=== PATIENT | female | born 1935 | race African-American/Black ===

== ENCOUNTER 2021-10-17 17:32 | Inpatient (IN) ==
[2021-10-17] MEDS ORDERED: SODIUM CHLORIDE 0.9% 1,000 ML IV STA (18:30)
[2021-10-17 18:57] LABS: Lactic Acid 1.8 MMOL/L (0.4-2.0)
[2021-10-17 19:00] LABS: Basophils % 0.2 % (0.0-0.8); Hematocrit 37.6 VOL% (35.7-47.0); Hemoglobin 12.9 GM/DL (12.0-16.0); Immature Granulocytes % 0.5 %; Immature Granulocytes Absolute 0.04 #; Lymphocytes # 0.7 10*3/uL (1.4-4.0); Lymphocytes % 8.2 % (21.3-54.2); Mean Corpuscular HGB Conc 34.3 GM/DL (32-36); Mean Corpuscular Volume 82.3 FL (87-102); Monocytes # 0.2 10*3/uL (0.11-0.8); Monocytes % 2.7 % (1.7-12.7); Neutrophils % 88.4 % (38.7-73.9); Platelet Count 243 T/CUMM (130-400); Red Blood Count 4.57 MC/CUMM (3.8-5.5); Red Cell Distribution Width 13.7 % (9.3-17.3); White Blood Count 8.9 T/CUMM (4-12)
[2021-10-17 19:09] LABS: Alanine Aminotransferase 19 U/L (13-56); Albumin 3.8 G/DL (3.4-5.0); Alkaline Phosphatase 154 U/L (45-117); Aspartate Amino Transferase 18 U/L (0-37); Blood Urea Nitrogen 16 MG/DL (7-18); Calcium 9.3 MG/DL (8.5-10.1); Carbon Dioxide 24 MMOL/L (21-32); Chloride 107 MMOL/L (98-107); Estimated Glom Filtration Rate 64 ML/MIN; Glucose 123 MG/DL (74-106); Osmolality,Calculated 276.7 MOS/KG (273-304); Potassium 3.7 MMOL/L (3.5-5.1); Sodium 138 MMOL/L (136-145); Total Protein 8.2 G/DL (6.4-8.2)
[2021-10-17 19:24] LABS: Mucus,Urine Occasional /LPF (Occasional); Squamous Epithelial Cell,Urine Occasional /HPF (0-10)
[2021-10-17 19:25] LABS: Bilirubin,Urine Negative (Negative); Blood, Urine Moderate mg/dL (Negative); Glucose,Urine (UA) Negative (Negative); Ketones,Urine Negative (Negative); Nitrite,Urine Negative (Negative); Protein,Urine >=300 mg/dL (Negative); Urine Appearance Clear (Clear); Urine Color Yellow (Yellow); Urine Specific Gravity 1.025 (1.001-1.035); Urine Urobilinogen 0.2 eU/dL (<2.0); Urine pH 6.5 (4.5-8.0)
[2021-10-17 19:33] LABS: Barbiturates Screen,Urine Negative (Negative); Benzodiazepines Screen,Urine Negative (Negative); Cannabinoid Screen,Urine Negative (Negative); Opiate Screen,Urine Negative (Negative); Phencyclidine Screen,Urine Negative (Negative)
[2021-10-17] MEDS ORDERED: hydrALAZINE 20 MG/1 ML VIAL IV STA (19:36)
[2021-10-17] MEDS ORDERED: amLODIPine 5 MG TABLET PO STA (20:19)
[2021-10-17] MEDS ORDERED: GLUCAGON 1 MG VIAL IM PRN (21:02)
[2021-10-17] MEDS ORDERED: ASPIRIN 325 MG TABLET PO STA (21:02)
[2021-10-17] MEDS ORDERED: hydrALAZINE 20 MG/1 ML VIAL IV PRN (21:02)
[2021-10-17] MEDS ORDERED: DEXTROSE 10% 250 ML BAG IV PRN (21:02)
[2021-10-17] MEDS: SODIUM CHLORIDE 0.9% 1,000 ML IV SCH (22:02)
[2021-10-18 05:57] LABS: Basophils # 0.1 10*3/uL (0.0-0.2); Basophils % 0.5 % (0.0-0.8); Eosinophils % 0.3 % (0.00-10.9); Hematocrit 34.1 VOL% (35.7-47.0); Hemoglobin 11.5 GM/DL (12.0-16.0); Immature Granulocytes % 0.3 %; Immature Granulocytes Absolute 0.03 #; Lymphocytes # 2.1 10*3/uL (1.4-4.0); Lymphocytes % 19.5 % (21.3-54.2); Mean Corpuscular HGB Conc 33.7 GM/DL (32-36); Mean Platelet Volume 10.7 FL (9.6-12.0); Monocytes # 0.7 10*3/uL (0.11-0.8); Monocytes % 6.2 % (1.7-12.7); Neutrophils % 73.2 % (38.7-73.9); Platelet Count 212 T/CUMM (130-400); Red Blood Count 4.11 MC/CUMM (3.8-5.5); Red Cell Distribution Width 13.7 % (9.3-17.3); White Blood Count 10.7 T/CUMM (4-12)
[2021-10-18 06:29] LABS: Calcium 8.7 MG/DL (8.5-10.1); Osmolality,Calculated 286.8 MOS/KG (273-304); Potassium 3.4 MMOL/L (3.5-5.1); Risk Ratio 3.06; Thyroid Stimulating Hormone 2.17 uIU/ml (0.358-3.74); VLDL Cholesterol 9.8 MG/DL
[2021-10-18] MEDS: ATORVASTATIN 40 MG TABLET PO SCH (13:46)
[2021-10-18] MEDS: ASPIRIN 325 MG TABLET PO SCH (13:46)
[2021-10-18] MEDS: ENOXAPARIN 40 MG/0.4 ML SYRINGE SUBCUT SCH (13:46)
[2021-10-18] MEDS: PANTOPRAZOLE 40 MG TABLET PO SCH (13:46)
[2021-10-18] MEDS ORDERED: LORazepam 2 MG/1 ML VIAL IM ONE (16:30)
[2021-10-18] MEDS ORDERED: HALOPERIDOL 5 MG/ML AMP IM ONE (16:30)
[2021-10-18] MEDS ORDERED: QUEtiapine 25 MG TABLET PO SCH (17:00)
[2021-10-18] MEDS: SODIUM CHLORIDE 0.9% 1,000 ML IV SCH (17:08)
[2021-10-19] MEDS ORDERED: LORazepam 2 MG/1 ML VIAL IV ONE (08:00)
[2021-10-19] MEDS: SODIUM CHLORIDE 0.9% 1,000 ML IV SCH ×2 (08:23→14:32)
[2021-10-19] MEDS: ENOXAPARIN 40 MG/0.4 ML SYRINGE SUBCUT SCH (09:29)
[2021-10-19] MEDS: ASPIRIN 325 MG TABLET PO SCH (09:39)
[2021-10-19] MEDS: ATORVASTATIN 40 MG TABLET PO SCH (09:40)
[2021-10-19] MEDS: PANTOPRAZOLE 40 MG TABLET PO SCH (09:40)
[2021-10-19] MEDS ORDERED: POTASSIUM CHLORIDE 20 MEQ TABLET PO ONE (15:30)
[2021-10-19] MEDS: ACETAMINOPHEN 325 MG TABLET PO PRN ×2 (17:22→21:47)
[2021-10-20] MEDS: PANTOPRAZOLE 40 MG TABLET PO SCH (09:18)
[2021-10-20] MEDS: ENOXAPARIN 40 MG/0.4 ML SYRINGE SUBCUT SCH (09:18)
[2021-10-20] MEDS: ATORVASTATIN 40 MG TABLET PO SCH (09:18)
[2021-10-20] MEDS: ASPIRIN 325 MG TABLET PO SCH (09:18)
[2021-10-20] MEDS: lisinopriL 20 MG TABLET PO SCH (09:20)
[2021-10-20] MEDS: MEGESTROL 400 MG/10 ML UDCUP PO SCH (22:00)
[2021-10-20] MEDS: ONDANSETRON 4 MG/2 ML VIAL IV PRN (23:56)
[2021-10-21] MEDS: ONDANSETRON 4 MG/2 ML VIAL IV PRN (04:04)
[2021-10-21 05:40] LABS: Basophils # 0.1 10*3/uL (0.0-0.2); Basophils % 0.6 % (0.0-0.8); Eosinophils # 0.1 10*3/uL (0.0-0.87); Eosinophils % 0.6 % (0.00-10.9); Hematocrit 39.9 VOL% (35.7-47.0); Hemoglobin 13.3 GM/DL (12.0-16.0); Immature Granulocytes % 0.4 %; Immature Granulocytes Absolute 0.03 #; Lymphocytes # 1.2 10*3/uL (1.4-4.0); Lymphocytes % 13.9 % (21.3-54.2); Mean Corpuscular HGB Conc 33.3 GM/DL (32-36); Mean Corpuscular Volume 83.8 FL (87-102); Mean Platelet Volume 10.6 FL (9.6-12.0); Monocytes # 0.5 10*3/uL (0.11-0.8); Monocytes % 5.6 % (1.7-12.7); Neutrophils % 78.9 % (38.7-73.9); Platelet Count 225 T/CUMM (130-400); Red Blood Count 4.76 MC/CUMM (3.8-5.5); Red Cell Distribution Width 13.5 % (9.3-17.3); White Blood Count 8.3 T/CUMM (4-12)
[2021-10-21 06:04] LABS: Albumin 3.5 G/DL (3.4-5.0); Bilirubin,Total 0.5 MG/DL (0.20-1.00); Calcium 9.5 MG/DL (8.5-10.1); Osmolality,Calculated 295.4 MOS/KG (273-304); Potassium 3.7 MMOL/L (3.5-5.1); Total Protein 7.8 G/DL (6.4-8.2)
[2021-10-21] MEDS: PANTOPRAZOLE 40 MG TABLET PO SCH (10:47)
[2021-10-21] MEDS: ASPIRIN 325 MG TABLET PO SCH (10:47)
[2021-10-21] MEDS: MEGESTROL 400 MG/10 ML UDCUP PO SCH ×2 (10:47→22:38)
[2021-10-21] MEDS: ATORVASTATIN 40 MG TABLET PO SCH (10:47)
[2021-10-21] MEDS: hydrALAZINE 25 MG TABLET PO SCH ×3 (10:47→22:38)
[2021-10-21] MEDS: lisinopriL 20 MG TABLET PO SCH (10:48)
[2021-10-21] MEDS: MULTIVITAMIN INJ 10 ML in SODIUM CHLORIDE 0.45% 1,000 ML IV SCH (10:49)
[2021-10-21] MEDS: ENOXAPARIN 40 MG/0.4 ML SYRINGE SUBCUT SCH (10:51)
[2021-10-21] MEDS: SODIUM CHLORIDE 0.9% 1,000 ML IV SCH (16:48)
[2021-10-21] MEDS: SODIUM CHLORIDE 0.45% 1,000 ML IV SCH (19:00)
[2021-10-22] MEDS: SODIUM CHLORIDE 0.45% 1,000 ML IV SCH (04:30)
[2021-10-22 07:06] LABS: Basophils # 0.1 10*3/uL (0.0-0.2); Basophils % 0.6 % (0.0-0.8); Eosinophils # 0.1 10*3/uL (0.0-0.87); Eosinophils % 1.1 % (0.00-10.9); Hematocrit 36.5 VOL% (35.7-47.0); Hemoglobin 12.1 GM/DL (12.0-16.0); Immature Granulocytes % 0.3 %; Immature Granulocytes Absolute 0.03 #; Lymphocytes # 1.5 10*3/uL (1.4-4.0); Lymphocytes % 15.5 % (21.3-54.2); Mean Corpuscular HGB Conc 33.2 GM/DL (32-36); Mean Corpuscular Volume 83.9 FL (87-102); Mean Platelet Volume 10.6 FL (9.6-12.0); Monocytes # 0.6 10*3/uL (0.11-0.8); Neutrophils % 76.5 % (38.7-73.9); Platelet Count 227 T/CUMM (130-400); Red Blood Count 4.35 MC/CUMM (3.8-5.5); Red Cell Distribution Width 13.8 % (9.3-17.3); White Blood Count 9.7 T/CUMM (4-12)
[2021-10-22 07:25] LABS: Albumin 3.1 G/DL (3.4-5.0); Bilirubin,Total 0.5 MG/DL (0.20-1.00); Calcium 8.7 MG/DL (8.5-10.1); Osmolality,Calculated 302.3 MOS/KG (273-304); Potassium 3.7 MMOL/L (3.5-5.1); Total Protein 6.9 G/DL (6.4-8.2)
[2021-10-22] MEDS: PANTOPRAZOLE 40 MG TABLET PO SCH (08:55)
[2021-10-22] MEDS: lisinopriL 20 MG TABLET PO SCH (08:55)
[2021-10-22] MEDS: MEGESTROL 400 MG/10 ML UDCUP PO SCH ×2 (08:55→22:01)
[2021-10-22] MEDS: ASPIRIN 325 MG TABLET PO SCH (08:55)
[2021-10-22] MEDS: hydrALAZINE 25 MG TABLET PO SCH ×3 (08:55→22:01)
[2021-10-22] MEDS: ATORVASTATIN 40 MG TABLET PO SCH (08:55)
[2021-10-22] MEDS: ENOXAPARIN 40 MG/0.4 ML SYRINGE SUBCUT SCH (09:05)
[2021-10-22] MEDS: MULTIVITAMIN INJ 10 ML in SODIUM CHLORIDE 0.45% 1,000 ML IV SCH (11:19)
[2021-10-22] MEDS ORDERED: LACTULOSE 20 GM/30 ML UDCUP PO SCH (11:30)
[2021-10-23] MEDS: SODIUM CHLORIDE 0.45% 1,000 ML IV SCH ×3 (01:00→21:26)
[2021-10-23 05:12] LABS: Basophils % 0.4 % (0.0-0.8); Eosinophils # 0.1 10*3/uL (0.0-0.87); Eosinophils % 1.2 % (0.00-10.9); Hematocrit 35.5 VOL% (35.7-47.0); Hemoglobin 11.7 GM/DL (12.0-16.0); Immature Granulocytes % 0.4 %; Immature Granulocytes Absolute 0.04 #; Lymphocytes # 1.4 10*3/uL (1.4-4.0); Lymphocytes % 13.8 % (21.3-54.2); Mean Corpuscular Volume 83.9 FL (87-102); Mean Platelet Volume 11.6 FL (9.6-12.0); Monocytes # 0.7 10*3/uL (0.11-0.8); Monocytes % 6.2 % (1.7-12.7); Red Blood Count 4.23 MC/CUMM (3.8-5.5); Red Cell Distribution Width 13.5 % (9.3-17.3); White Blood Count 10.5 T/CUMM (4-12)
[2021-10-23 05:14] LABS: Platelet Count 151 T/CUMM (130-400)
[2021-10-23] MEDS: ACETAMINOPHEN 325 MG TABLET PO PRN (05:37)
[2021-10-23 05:46] LABS: Albumin 2.7 G/DL (3.4-5.0); Bilirubin,Total 0.6 MG/DL (0.20-1.00); Calcium 8.9 MG/DL (8.5-10.1); Osmolality,Calculated 286.1 MOS/KG (273-304); Potassium 3.5 MMOL/L (3.5-5.1); Total Protein 6.4 G/DL (6.4-8.2)
[2021-10-23] MEDS: hydrALAZINE 25 MG TABLET PO SCH ×3 (08:44→21:27)
[2021-10-23] MEDS: ATORVASTATIN 40 MG TABLET PO SCH (08:44)
[2021-10-23] MEDS: ASPIRIN 325 MG TABLET PO SCH (08:44)
[2021-10-23] MEDS: MEGESTROL 400 MG/10 ML UDCUP PO SCH ×2 (08:44→21:26)
[2021-10-23] MEDS: PANTOPRAZOLE 40 MG TABLET PO SCH (08:45)
[2021-10-23] MEDS: lisinopriL 20 MG TABLET PO SCH (08:45)
[2021-10-23] MEDS: ENOXAPARIN 40 MG/0.4 ML SYRINGE SUBCUT SCH (08:46)
[2021-10-23] MEDS: POTASSIUM CHLORIDE 20 MEQ TABLET PO PRN ×2 (08:53→11:47)
[2021-10-23] MEDS: MULTIVITAMIN INJ 10 ML in SODIUM CHLORIDE 0.45% 1,000 ML IV SCH (08:57)
[2021-10-23] MEDS: NYSTATIN 500,000 UNIT/5 ML UDCUP SWISH/SWAL SCH ×2 (16:25→21:26)
[2021-10-23] MEDS ORDERED: risperiDONE 0.25 MG TABLET PO SCH (18:00)
[2021-10-24 08:04] LABS: Basophils # 0.1 10*3/uL (0.0-0.2); Basophils % 0.5 % (0.0-0.8); Eosinophils # 0.1 10*3/uL (0.0-0.87); Eosinophils % 1.2 % (0.00-10.9); Hematocrit 36.2 VOL% (35.7-47.0); Hemoglobin 12.4 GM/DL (12.0-16.0); Immature Granulocytes % 0.4 %; Immature Granulocytes Absolute 0.04 #; Lymphocytes # 1.9 10*3/uL (1.4-4.0); Mean Corpuscular HGB Conc 34.3 GM/DL (32-36); Mean Corpuscular Volume 82.3 FL (87-102); Mean Platelet Volume 11.1 FL (9.6-12.0); Monocytes # 0.7 10*3/uL (0.11-0.8); Monocytes % 6.3 % (1.7-12.7); Neutrophils % 73.6 % (38.7-73.9); Platelet Count 208 T/CUMM (130-400); Red Cell Distribution Width 13.5 % (9.3-17.3); White Blood Count 10.4 T/CUMM (4-12)
[2021-10-24 08:22] LABS: Albumin 3.1 G/DL (3.4-5.0); Bilirubin,Total 0.6 MG/DL (0.20-1.00); Calcium 9.1 MG/DL (8.5-10.1); Osmolality,Calculated 282.1 MOS/KG (273-304); Potassium 3.6 MMOL/L (3.5-5.1)
[2021-10-24] MEDS: ENOXAPARIN 40 MG/0.4 ML SYRINGE SUBCUT SCH (09:18)
[2021-10-24] MEDS: MEGESTROL 400 MG/10 ML UDCUP PO SCH ×2 (09:18→21:37)
[2021-10-24] MEDS: ATORVASTATIN 40 MG TABLET PO SCH (09:18)
[2021-10-24] MEDS: lisinopriL 20 MG TABLET PO SCH (09:18)
[2021-10-24] MEDS: PANTOPRAZOLE 40 MG TABLET PO SCH (09:18)
[2021-10-24] MEDS: ASPIRIN 325 MG TABLET PO SCH (09:18)
[2021-10-24] MEDS: NYSTATIN 500,000 UNIT/5 ML UDCUP SWISH/SWAL SCH ×4 (09:18→21:37)
[2021-10-24] MEDS: MULTIVITAMIN INJ 10 ML in SODIUM CHLORIDE 0.45% 1,000 ML IV SCH (09:34)
[2021-10-24] MEDS ORDERED: LACTULOSE 20 GM/30 ML UDCUP PO ONE (13:00)
[2021-10-24] MEDS: ACETAMINOPHEN 325 MG TABLET PO PRN (14:12)
[2021-10-24] MEDS: SODIUM CHLORIDE 0.45% 1,000 ML IV SCH (20:57)
[2021-10-24] MEDS: risperiDONE 0.5 MG TABLET PO SCH (21:37)
[2021-10-25] MEDS: ACETAMINOPHEN 325 MG TABLET PO PRN (05:39)
[2021-10-25 06:46] LABS: Basophils # 0.1 10*3/uL (0.0-0.2); Basophils % 0.6 % (0.0-0.8); Eosinophils # 0.1 10*3/uL (0.0-0.87); Eosinophils % 1.5 % (0.00-10.9); Hematocrit 34.3 VOL% (35.7-47.0); Hemoglobin 11.6 GM/DL (12.0-16.0); Immature Granulocytes % 0.2 %; Immature Granulocytes Absolute 0.02 #; Lymphocytes # 1.4 10*3/uL (1.4-4.0); Mean Corpuscular HGB Conc 33.8 GM/DL (32-36); Mean Corpuscular Volume 83.3 FL (87-102); Mean Platelet Volume 10.9 FL (9.6-12.0); Monocytes # 0.6 10*3/uL (0.11-0.8); Monocytes % 6.9 % (1.7-12.7); Neutrophils % 74.8 % (38.7-73.9); Platelet Count 187 T/CUMM (130-400); Red Blood Count 4.12 MC/CUMM (3.8-5.5); Red Cell Distribution Width 13.7 % (9.3-17.3); White Blood Count 8.6 T/CUMM (4-12)
[2021-10-25 07:15] LABS: Albumin 2.8 G/DL (3.4-5.0); Bilirubin,Total 0.4 MG/DL (0.20-1.00); Calcium 8.9 MG/DL (8.5-10.1); Osmolality,Calculated 283.1 MOS/KG (273-304); Potassium 3.4 MMOL/L (3.5-5.1); Total Protein 6.4 G/DL (6.4-8.2)
[2021-10-25] MEDS ORDERED: POTASSIUM CHLORIDE 20 MEQ TABLET PO ONE (08:30)
[2021-10-25] MEDS: ENOXAPARIN 40 MG/0.4 ML SYRINGE SUBCUT SCH (11:02)
[2021-10-25] MEDS: ASPIRIN 325 MG TABLET PO SCH (11:02)
[2021-10-25] MEDS: MULTIVITAMIN (CENTRUM) TABLET PO SCH (11:02)
[2021-10-25] MEDS: ATORVASTATIN 40 MG TABLET PO SCH (11:02)
[2021-10-25] MEDS: MEGESTROL 400 MG/10 ML UDCUP PO SCH ×2 (11:03→22:30)
[2021-10-25] MEDS: NYSTATIN 500,000 UNIT/5 ML UDCUP SWISH/SWAL SCH ×4 (11:03→22:30)
[2021-10-25] MEDS: PANTOPRAZOLE 40 MG TABLET PO SCH (11:04)
[2021-10-25] MEDS: lisinopriL 20 MG TABLET PO SCH (11:04)
[2021-10-25] MEDS ORDERED: DEXTROSE 5% NACL 0.45% 1,000 ML IV SCH (16:00)
[2021-10-25] MEDS: risperiDONE 0.5 MG TABLET PO SCH (22:30)
[2021-10-25] MEDS: LACTULOSE 20 GM/30 ML UDCUP PO SCH (22:34)
[2021-10-26] MEDS: ATORVASTATIN 40 MG TABLET PO SCH (10:38)
[2021-10-26] MEDS: PANTOPRAZOLE 40 MG TABLET PO SCH (10:38)
[2021-10-26] MEDS: lisinopriL 20 MG TABLET PO SCH (10:38)
[2021-10-26] MEDS: ASPIRIN 325 MG TABLET PO SCH (10:38)
[2021-10-26] MEDS: MULTIVITAMIN (CENTRUM) TABLET PO SCH (10:38)
[2021-10-26] MEDS: MEGESTROL 400 MG/10 ML UDCUP PO SCH (10:39)
[2021-10-26] MEDS: NYSTATIN 500,000 UNIT/5 ML UDCUP SWISH/SWAL SCH ×2 (10:39→13:54)
[2021-10-26] MEDS: LACTULOSE 20 GM/30 ML UDCUP PO SCH (10:39)
[2021-10-26] MEDS: ENOXAPARIN 40 MG/0.4 ML SYRINGE SUBCUT SCH (10:40)
[2021-10-26 11:35] VITALS: BP 136/48
== END 2021-10-26 15:10 | DRG 65 ==
LOC: N.ED 17:32 → N.5E 21:02 → SUATTDRO 21:02 → N.5E 22:08
PROVIDERS: ADMIT Internal Medicine; ATTEND Internal Medicine